=== PATIENT | male | born 1945 | race Caucasian/White ===

== ENCOUNTER 2017-06-22 08:24 | Day surgery (SDC) | payer MEDICARE ==
[~2017-06-22] VITALS: Ht 177.8 cm; Wt 76.4 kg
[~2017-06-22 08:24] MED LIST: ASPI325 PO; Advil200 M1 PO; Antacid500 MG PO; CHOL10002 PO; ISOMON20 PO; METO50ER PO; NITR.4SL SL; Prilosec Otc20 MG PO; TAMS.4ER PO; TRET.1TC TOP
[2017-06-22] MEDS ORDERED: ATOR10 (08:56)
== END 2017-06-22 10:37 | disposition home or self-care (01) ==
LOC: ORSCSDS 08:24
PROVIDERS: Internal Medicine Gastroenterology
PROC: 0DBN8ZX Excision of Sigmoid Colon, Via Natural or Artificial Opening Endoscopic, Diagnostic (ICD-10-PCS; principal; 2017-06-22 09:45)
PROC: 0DBM8ZX Excision of Descending Colon, Via Natural or Artificial Opening Endoscopic, Diagnostic (ICD-10-PCS; principal; 2017-06-22 09:45)
DX: Z12.11 Encounter for screening for malignant neoplasm of colon (principal); D12.4 Benign neoplasm of descending colon; D12.5 Benign neoplasm of sigmoid colon; K64.8 Other hemorrhoids; Z86.010 Personal history of colon polyps; K57.30 Diverticulosis of large intestine without perforation or abscess without bleeding; Z79.82 Long term (current) use of aspirin; Z79.899 Other long term (current) drug therapy
CPT/HCPCS: 88305; J7120

== ENCOUNTER 2021-07-25 08:38 | Day surgery (SDC) | payer MEDICARE ==
[~2021-07-25] VITALS: Ht 175.3 cm; Wt 80.0 kg
[~2021-07-25 08:38] MED LIST changes: +ATOR10
[2021-07-25] MEDS ORDERED: MAGNESIUM PO (08:57)
--- NOTE | 2021-07-25 10:19 | NUR ---
DR SUTTON IN ROOM TO SEE PT AND .
--- NOTE | 2021-07-25 12:15 | NUR ---
PT RETURNED TO RECOVERY ROOM IN [facility]CLINER. LEFT RADIAL TR BAND SITE SOFT NON-TENDER WITH NO HEMATOMA, NO PULSATILE BLEEDING AND WRIST BOARD IN PLACE. PT'S IN ROOM. DR SUTTON IN ROOM TO TALK WITH PT/. CALL LIGHT IN REACH. PT EATING LUNCH. CALL LIGHT IN REACH.
--- NOTE | 2021-07-25 12:17 | NUR ---
PT DENIES CHEST PAIN.
--- NOTE | 2021-07-25 12:57 | NUR ---
DISCHARGE INSTRUCTIONS REVIEWED ALL QUESTIONS ANSWERED.
--- NOTE | 2021-07-25 14:01 | NUR ---
12 CC OF AIR REMOVED FROM NOW DEFLATED LEFT TR BAND OVER 11 MIN. LEFT DEFLATED LEFT TR BAND SITE SOFT NON-TENDER WITH NO HEMATOMA, NO PULSATILE BLEEDING.
--- NOTE | 2021-07-25 14:41 | NUR ---
LEFT DEFLATED TR BAND REMOVED AND POLYMEM PLACED OVER LEFT RADIAL SITE WITH WRIST BOARD IN PLACE. 20 G IV DISCONTINUED FROM RIGHT AC WITH INTACT CANNULA. LEFT RADIAL SITE SOFT NON-TENDER WITH NO HEMATOMA, NO PULSATILE BLEEDING. PT AMBULATED TO BR TO VOID.
--- NOTE | 2021-07-25 14:48 | NUR ---
PT ESCORTED OUT VIA WHEELCHAIR ESCORT.
== END 2021-07-25 14:50 | disposition home or self-care (01) ==
LOC: MHTC 08:38
DX: I25.10 Atherosclerotic heart disease of native coronary artery without angina pectoris (principal); I35.0 Nonrheumatic aortic (valve) stenosis; I10 Essential (primary) hypertension; K21.9 Gastro-esophageal reflux disease without esophagitis; E78.5 Hyperlipidemia, unspecified; Z95.1 Presence of aortocoronary bypass graft
CPT/HCPCS: 76937; 93455; C1769; C1887; C1894; J1644; J2250; J3010; J7030; J7040; Q9967

== ENCOUNTER → 2022-06-23 | Outpatient (CLI) | payer MEDICARE ==
[~2022-06-23] MED LIST changes: +MAGNESIUM PO
== END | disposition home or self-care (01) ==
LOC: LAB SHORT 13:51 → LAB 13:51
DX: K21.9 Gastro-esophageal reflux disease without esophagitis (principal)
CPT/HCPCS: 87338

== ENCOUNTER 2023-12-24 07:35 | Day surgery (SDC) | payer MEDICARE ==
[~2023-12-24] VITALS: Ht 175.3 cm; Wt 76.1 kg
[~2023-12-24 07:35] MED LIST changes: +Lactated Ringer's 1,000 ML IV ONE
[2023-12-24] MEDS ORDERED: Lactated Ringer's 1,000 ML IV ONE (08:02)
[2023-12-24] MEDS ORDERED: Lidocaine 1%-Epineph 1:100000 20 ML MDV INJ ONE (08:19)
--- NOTE | 2023-12-24 08:24 | NUR ---
12/24/[address] INTO PRE-OP FOR INJECTION OF 10CC( 9CC LIDOCAINE 1% WITH EPINEPHRINE 1:100,000, AND 1 CC SODIUM BICARB IN RIGHT HAND. PT TOLERATED WELL.
[2023-12-24 09:24] VITALS: BP 111/71
== END 2023-12-24 09:48 | disposition home or self-care (01) ==
LOC: ORSCSDS 07:35
PROVIDERS: Orthopaedic Surgery
PROC: 01N54ZZ Release Median Nerve, Percutaneous Endoscopic Approach (ICD-10-PCS; principal; 2023-12-24 09:30)
DX: G56.01 Carpal tunnel syndrome, right upper limb (principal); K21.9 Gastro-esophageal reflux disease without esophagitis; E78.5 Hyperlipidemia, unspecified; Z79.82 Long term (current) use of aspirin; Z79.899 Other long term (current) drug therapy
CPT/HCPCS: J7120